=== PATIENT | male | born 1940 | race Caucasian/White ===

== ENCOUNTER 2019-11-30 23:34 | Emergency (ER) | payer OTHER ==
[~2019-11-30] VITALS: Ht 180.3 cm; Wt 96.2 kg
[2019-12-01] MEDS ORDERED: METF500 (00:14)
[2019-12-01] MEDS ORDERED: Crestor20 MG (00:14)
[2019-12-01] MEDS ORDERED: XARELTO20 MG (00:14)
== END 2019-12-01 00:36 | disposition home or self-care (01) ==
LOC: ER 23:34
DX: Z13.858 Encounter for screening for other nervous system disorders (principal); E11.9 Type 2 diabetes mellitus without complications; Z79.899 Other long term (current) drug therapy; Z79.84 Long term (current) use of oral hypoglycemic drugs
CPT/HCPCS: 82947; 99283